=== PATIENT | male | born 1940 | race Caucasian/White ===

== ENCOUNTER 2016-04-01 04:18 | Inpatient (IN) | payer MEDICARE ==
[~2016-04-01] VITALS: Ht 185.4 cm; Wt 80.3 kg
[2016-04-01] MEDS ORDERED: ONDANSETRON 4 MG VIAL IV PUSH PRN (04:35)
[2016-04-01] MEDS ORDERED: BUMETANIDE 1 MG/4 ML VIAL IV SCH (06:00)
[2016-04-01] MEDS: BUMETANIDE 2.5 MG/10 ML VIAL IV SCH ×4 (06:00→18:50)
[2016-04-01 07:33] VITALS: BP_SYST 92; RESP 20; TEMP 97.9
[2016-04-01 07:51] VITALS: BMI 23.5
[2016-04-01] MEDS ORDERED: POLYETHYLENE GLYCOL 17 GM PACKET PO PRN (10:35)
[2016-04-01 11:18] VITALS: BP_SYST 103; RESP 18; TEMP 97.5
[2016-04-01 11:19] VITALS: TEMP 97.5
[2016-04-01] MEDS: MIDODRINE 10 MG TAB PO SCH ×2 (11:27→17:49)
[2016-04-01] MEDS: LEVOTHYROXINE 0.05 MG TAB PO SCH (11:28)
[2016-04-01] MEDS: GABAPENTIN 100 MG CAP PO SCH ×2 (11:28→21:03)
[2016-04-01] MEDS: ASPIRIN EC 81 MG TAB PO SCH (11:28)
[2016-04-01 11:57] VITALS: Ht 185.4 cm; Wt 80.3 kg
[2016-04-01] MEDS ORDERED: PHARMACY TO DOSE CEFEPIME IV SCH (15:35)
[2016-04-01 16:19] VITALS: BP_SYST 74; TEMP 97.8
[2016-04-01] MEDS ORDERED: CEFEPIME 1,000 MG in SODIUM CHLORIDE 0.9% 100 ML IV SCH (16:20)
[2016-04-01] MEDS ORDERED: NEB-DORNASE ALFA 5 MG, WATER, STERILE 25 ML in ADMIX SYRINGE 1 EACH I-PLEURAL SCH ×2 (17:00)
[2016-04-01] MEDS ORDERED: ALTEPLASE RECOMBINANT 10 MG, SODIUM CHLORIDE 0.9% PF 20 ML in ADMIX SYRINGE 1 EACH I-PLEURAL SCH ×2 (17:00)
[2016-04-01 19:49] VITALS: BP_SYST 94; RESP 20; TEMP 97.8
[2016-04-01] MEDS ORDERED: MISSING DOSE XX ONE (20:55)
[2016-04-01] MEDS: APIXABAN 5 MG TAB PO SCH (21:03)
[2016-04-01] MEDS: LATANOPROST OP SOLN EYE EACH SCH (23:47)
[2016-04-02] VITALS (8 sets, daily range): BP systolic 78–104; RESP 16–20; TEMP 97.4–97.9
[2016-04-02] MEDS ORDERED: SALINE FLUSH 10 ML FLUSH PRN (02:25)
[2016-04-02] MEDS: ACETAMINOPHEN 325 MG TAB PO PRN ×3 (03:21→18:50)
[2016-04-02] MEDS: MIDODRINE 10 MG TAB PO SCH ×3 (06:21→16:29)
[2016-04-02] MEDS: LEVOTHYROXINE 0.05 MG TAB PO SCH (06:21)
[2016-04-02] MEDS: SODIUM CHLORIDE 0.9% FLUSH BAG 500 ML IV SCH (06:21)
[2016-04-02] MEDS: BUMETANIDE 2.5 MG/10 ML VIAL IV SCH ×4 (06:28→18:49)
[2016-04-02] MEDS: GABAPENTIN 100 MG CAP PO SCH ×2 (08:32→21:00)
[2016-04-02] MEDS: SALINE FLUSH 10 ML FLUSH SCH ×2 (08:32→21:00)
[2016-04-02] MEDS: ASPIRIN EC 81 MG TAB PO SCH (08:32)
[2016-04-02] MEDS: APIXABAN 5 MG TAB PO SCH ×2 (08:32→21:00)
[2016-04-02] MEDS ORDERED: SODIUM CHLORIDE 0.9% 1,000 ML IV SCH (10:35)
[2016-04-02] MEDS: DIGOXIN 0.125 MG TAB PO SCH (12:32)
[2016-04-02] MEDS ORDERED: MISSING DOSE XX ONE (20:55)
[2016-04-02] MEDS: LATANOPROST OP SOLN EYE EACH SCH (21:00)
[2016-04-03] VITALS (7 sets, daily range): BP systolic 92–103; RESP 16–18; TEMP 97.4–98.5
[2016-04-03] MEDS: BUMETANIDE 2.5 MG/10 ML VIAL IV SCH ×5 (00:32→23:58)
[2016-04-03] MEDS: LEVOTHYROXINE 0.05 MG TAB PO SCH (05:32)
[2016-04-03] MEDS: ACETAMINOPHEN 325 MG TAB PO PRN (05:32)
[2016-04-03] MEDS: MIDODRINE 10 MG TAB PO SCH ×3 (05:32→15:33)
[2016-04-03] MEDS: SODIUM CHLORIDE 0.9% FLUSH BAG 500 ML IV SCH (05:33)
[2016-04-03] MEDS: SALINE FLUSH 10 ML FLUSH SCH ×2 (08:47→19:56)
[2016-04-03] MEDS: ASPIRIN EC 81 MG TAB PO SCH (08:47)
[2016-04-03] MEDS: GABAPENTIN 100 MG CAP PO SCH ×2 (08:47→19:55)
[2016-04-03] MEDS: APIXABAN 5 MG TAB PO SCH ×2 (08:47→19:55)
[2016-04-03] MEDS: LATANOPROST OP SOLN EYE EACH SCH (19:55)
[2016-04-04 04:22] VITALS: BP_SYST 98; RESP 18; TEMP 97.6
[2016-04-04] MEDS: LEVOTHYROXINE 0.05 MG TAB PO SCH (05:46)
[2016-04-04] MEDS: MIDODRINE 10 MG TAB PO SCH ×3 (05:46→14:55)
[2016-04-04] MEDS: BUMETANIDE 2.5 MG/10 ML VIAL IV SCH ×2 (05:46→13:39)
[2016-04-04] MEDS: SODIUM CHLORIDE 0.9% FLUSH BAG 500 ML IV SCH (05:47)
[2016-04-04 07:33] VITALS: BP_SYST 97; RESP 18; TEMP 97.5
[2016-04-04] MEDS: GABAPENTIN 100 MG CAP PO SCH (08:40)
[2016-04-04] MEDS: ASPIRIN EC 81 MG TAB PO SCH (08:40)
[2016-04-04] MEDS: SALINE FLUSH 10 ML FLUSH SCH (08:40)
[2016-04-04] MEDS: APIXABAN 5 MG TAB PO SCH (08:40)
[2016-04-04 10:55] VITALS: BP_SYST 113; RESP 18; TEMP 97.7
[2016-04-04] MEDS: DIGOXIN 0.125 MG TAB PO SCH (13:38)
[2016-04-04 14:14] VITALS: BP_SYST 113; RESP 18; TEMP 97.5
[2016-04-04 14:35] VITALS: BP_SYST 96; RESP 18; TEMP 97.4
[2016-04-04 14:48] VITALS: BP_SYST 83; RESP 18; TEMP 97.8
== END 2016-04-04 17:46 | disposition home health service (06) | DRG 186 ==
LOC: ENRESERVTM → ENRESERVDT → EMR 04:18 → UNDOADMIN 04:18 → 4THE 06:11 → 4THW 04-04 11:55
PROVIDERS: ADMIT Internal Medicine Nephrology; ATTEND Internal Medicine Nephrology
PROC: 0W9B30Z Drainage of Left Pleural Cavity with Drainage Device, Percutaneous Approach (ICD-10-PCS; 2016-04-01)
PROC: 5A1D60Z (ICD-10-PCS; principal; 2016-04-02)
CPT/HCPCS: 32551; 32555; 71010; 71250; 76604; 80053; 82150; 82465; 82945; 83615; 83735; 83986; 84100; 84155; 85025; 87071; 87102; 87116; 87205; 87206; 88108; 89051; 99223; 99232; 99233